=== PATIENT | female | born 1950 | race Caucasian/White ===

== ENCOUNTER 2023-11-12 09:10 | Outpatient (REF) | payer MEDICARE, SELFPAY ==
--- NOTE | ~2023-11-12 | XR_ITS ---
EXAMINATION: XR LUMBOSACRAL SPINE AND RIGHT HIP CLINICAL INFORMATION: Reason for Exam M25.551 - Pain in right hip COMPARISON: None TECHNIQUE: 3 views of the lumbar spine. One view of the pelvis and one view of the right hip. FINDINGS: 5 nonrib-bearing lumbar-type vertebral bodies. Upper abdominal surgical clips. Vertebral body heights are maintained. Levoconvex curvature of the lumbar spine. Mild to moderate multilevel degenerative disc disease with loss of disc space height and facet arthropathy. Calcified phleboliths in the pelvis. Atherosclerotic vascular calcification. Large volume of desiccated stool in the pelvis. Hip and sacroiliac joint spaces are maintained. No hip or pelvic fracture or dislocation. XR/XR hip RT min 2V IMPRESSION: 1. Levoconvex curvature of the lumbar spine. Mild to moderate multilevel degenerative disc disease with loss of disc space height and facet arthropathy. 2. Large volume of desiccated stool in the pelvis. 3. Hip and sacroiliac joint spaces are maintained.
--- NOTE | ~2023-11-12 | XR_ITS ---
EXAMINATION: XR LUMBOSACRAL SPINE AND RIGHT HIP CLINICAL INFORMATION: Reason for Exam M25.551 - Pain in right hip COMPARISON: None TECHNIQUE: 3 views of the lumbar spine. One view of the pelvis and one view of the right hip. FINDINGS: 5 nonrib-bearing lumbar-type vertebral bodies. Upper abdominal surgical clips. Vertebral body heights are maintained. Levoconvex curvature of the lumbar spine. Mild to moderate multilevel degenerative disc disease with loss of disc space height and facet arthropathy. Calcified phleboliths in the pelvis. Atherosclerotic vascular calcification. Large volume of desiccated stool in the pelvis. Hip and sacroiliac joint spaces are maintained. No hip or pelvic fracture or dislocation. XR/XR lumbar spine 2-3V IMPRESSION: 1. Levoconvex curvature of the lumbar spine. Mild to moderate multilevel degenerative disc disease with loss of disc space height and facet arthropathy. 2. Large volume of desiccated stool in the pelvis. 3. Hip and sacroiliac joint spaces are maintained.
== END 2023-11-12 09:11 | disposition home or self-care (01) ==
LOC: HO.HOSX 09:10
PROVIDERS: Visit Provider Orthopaedic Surgery
DX: M25.551 Pain in right hip (principal); M54.50 Low back pain, unspecified
CPT/HCPCS: 72100; 73502; 99202

== ENCOUNTER 2023-11-12 14:20 | Outpatient (AMB) | payer MEDICARE, SELFPAY ==
--- NOTE | 2023-11-12 14:35 | A.OFFVIS_ITS ---
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 She also has intermittent pain along the posterior aspect of her right hip. Her symptoms have gotten worse over the last year in spite of continued non operative treatments. She has tried Tylenol and anti-inflammatory medicines which gave her minimal relief. She has also done physical therapy exercises which aggravated her pain. The patient states that she also has intermittent weakness in her right leg. as a new patient with Right hip pain. Patient reports her pain has been going on for about 3 months and is a 10 on the 1-10 pain scale. Allergies budesonide [From RHINOCORT AQUA] Allergy (Severe, Unverified 04/20/20 15:38) NASAL SPRAY- SWOLLEN FACE- DIFF BREATHING doxycycline [DOXYCYCLINE] Allergy (Severe, Unverified 04/20/20 15:38) SWOLLEN LIPS, FACE TONGUE fluticasone [FLUTICASONE] Allergy (Severe, Unverified 04/20/20 15:38) NASAL SPRAY - SWOLLEN FACE DIFF BREATHING NSAIDS (Non-Steroidal Anti-Inflamma [NSAIDS (NON-STEROIDAL ANTI-INFLAMMA] Allergy (Severe, Unverified 04/20/20 15:38) SWOLLEN TONGUE,THROAT FACE DIFF BREATHING Quinolones [QUINOLONES] Allergy (Severe, Unverified 04/20/20 15:38) SWOLLEN TONGUE FACE DIFF BREATHING Tetracyclines [TETRACYCLINES] Allergy (Severe, Unverified 04/20/20 15:38) SWOLLEN LIPS, FACE TONGUE Sulfa (Sulfonamide Antibiotics) Allergy (Unknown, Unverified 04/20/20 15:38) BAD REACTION sulfamethoxazole [From BACTRIM] Allergy (Unknown, Unverified 04/20/20 15:38) BAD RXN DOES NOT REMEMBER EXACTLY WHAT HAPPENED Thiazides [THIAZIDES] Allergy (Unknown, Unverified 04/20/20 15:38) BAD RXN trimethoprim [From BACTRIM] Allergy (Unknown, Unverified 04/20/20 15:38) BAD RXN DOES NOT REMEMBER EXACTLY WHAT HAPPENED [facility] Surgical History (Updated 11/12/23 @ 14:48 by Elmira Silver CMA) H/O: hysterectomy History of left knee replacement (06/17/11) Hx of foot surgery Hx of appendectomy Physical Exam Const Other: Well-nourished well-developed very friendly female awake alert and oriented x3 in no acute distress Back/Spine/Pelvis Other: Low back examination shows right-sided paraspinal muscle tenderness, pain with range of motion, positive straight leg raise test on the right at 70 degrees, 4/5 strength with testing of her right hip flexors and knee extensors when compared to 5/5 strength on her left side Extrem Other: Bilateral lower extremity examination shows good capillary refill, no skin lesions noted, normal sensation light touch Right hip examination shows minimal discomfort with range of motion, no tenderness over her bursa Results Reviewed Results Reviewed: X-rays of the patient's right hip show mild diffuse joint space narrowing, no acute bony abnormalities X-rays of the patient's lumbar spine show diffuse degenerative disc disease, no acute bony abnormalities Assessment & Plan Assessment & Plan (1) Low back pain: Code(s): M54.50 - Low back pain, unspecified Plan Ms. Marcano presents with progressively worsening low back pain which radiates down her right leg as well as associated right leg weakness possibly due to lumbar stenosis or a disc herniation. Thus, I will send the patient for a CT scan of her lumbar spine for further evaluation. The patient states that she has not able to get an MRI because of hattie placed surgically with an her jaw years ago. I will see the patient back following the CT scan to discuss the findings and treatment options. She will call me prior to that time should her symptoms worsen in any way. Feel free to call me at any time should questions regarding her orthopedic management arise. I spent 22 minutes in reviewing the patient's records and imaging studies, seeing the patient and documenting in the medical record. Orders: Orders XR hip RT min 2V Today M25.551 - Pain in right hip CT lumbar spine wo IV con Today M54.50 - Low back pain, unspecified XR lumbar spine 2-3V Today M54.50 - Low back pain, unspecified Coding Level of Care Code New Pt Level 2 (11653) Diagnoses Low back pain M54.50
== END 2023-11-12 14:49 | disposition home or self-care (01) ==
PROVIDERS: PCP Internal Medicine; Visit Provider Orthopaedic Surgery
DX: M54.50 Low back pain, unspecified (principal)
CPT/HCPCS: 99202

== ENCOUNTER 2023-12-31 14:29 | Outpatient (AMB) | payer MEDICARE, SELFPAY ==
--- NOTE | 2023-12-31 14:30 | A.OFFVIS_ITS ---
Intake Visit Reasons: OV - CT Lumbar Spine review Intake Note: Crystal is a 73 year old female who presents with complaints of progressively worsening low back pain which radiates down her right leg into her right thigh. She also has intermittent pain along the posterior aspect of her right hip. Her symptoms have gotten worse over the last year in spite of continued non operative treatments. She has tried Tylenol and anti-inflammatory medicines which gave her minimal relief. She has also done physical therapy exercises which aggravated her pain. The patient states that she also has intermittent weakness in her right leg. Allergies budesonide [From RHINOCORT AQUA] Allergy (Severe, Unverified 12/31/23 14:33) NASAL SPRAY- SWOLLEN FACE- DIFF BREATHING doxycycline [DOXYCYCLINE] Allergy (Severe, Unverified 12/31/23 14:33) SWOLLEN LIPS, FACE TONGUE fluticasone [FLUTICASONE] Allergy (Severe, Unverified 12/31/23 14:33) NASAL SPRAY - SWOLLEN FACE DIFF BREATHING NSAIDS (Non-Steroidal Anti-Inflamma [NSAIDS (NON-STEROIDAL ANTI-INFLAMMA] Allergy (Severe, Unverified 12/31/23 14:33) SWOLLEN TONGUE,THROAT FACE DIFF BREATHING Quinolones [QUINOLONES] Allergy (Severe, Unverified 12/31/23 14:33) SWOLLEN TONGUE FACE DIFF BREATHING Tetracyclines [TETRACYCLINES] Allergy (Severe, Unverified 12/31/23 14:33) SWOLLEN LIPS, FACE TONGUE Sulfa (Sulfonamide Antibiotics) Allergy (Unknown, Unverified 12/31/23 14:33) BAD REACTION sulfamethoxazole [From BACTRIM] Allergy (Unknown, Unverified 12/31/23 14:33) BAD RXN DOES NOT REMEMBER EXACTLY WHAT HAPPENED Thiazides [THIAZIDES] Allergy (Unknown, Unverified 12/31/23 14:33) BAD RXN trimethoprim [From BACTRIM] Allergy (Unknown, Unverified 12/31/23 14:33) BAD RXN DOES NOT REMEMBER EXACTLY WHAT HAPPENED Medication List - Last Reconciled 12/31/23 by Devon Sheppard MD amoxicillin 2,000 mg (4 x 500 mg) PO ONCE pentazocine-aspirin 12.5-325 mg tabs PO PFSH Surgical History H/O: hysterectomy History of left knee replacement (06/17/11) Hx of foot surgery Hx of appendectomy Physical Exam Const Other: Well-nourished well-developed very friendly female awake alert and oriented x3 in no acute distress Back/Spine/Pelvis Other: Low back examination shows right-sided paraspinal muscle tenderness, pain with range of motion, positive straight leg raise test on the right at 70 degrees Results Reviewed Results Reviewed: MRI report of the patient's lumbar spine shows moderate neural foraminal stenosis at levels L1-L2 and level L2-L3, moderate bilateral neural foraminal stenosis at level L5-S1 Assessment & Plan Assessment & Plan (1) Lumbar stenosis: Code(s): M48.061 - Spinal stenosis, lumbar region without neurogenic claudication Category: Medical Plan Ms. Marcano presents with low back pain which radiates down her right leg due to neural foraminal stenosis. Thus, I will send the patient for an evaluation in our Neurosurgery Department here at [facility]. The patient will contact me prior to that appointment should her symptoms worsen in any way. Feel free to call me at any time should questions regarding her orthopedic management arise. I spent 21 minutes in reviewing the patient's records and imaging studies, seeing the patient and documenting in the medical record. Orders: Referrals Neurosurgery Referral M48.061 - Spinal stenosis, lumbar region without neurogenic claudication Coding Level of Care Code Est Pt Level 3 (67164) Diagnoses Lumbar stenosis M48.061
== END 2023-12-31 14:59 | disposition home or self-care (01) ==
PROVIDERS: PCP Internal Medicine; Visit Provider Orthopaedic Surgery
DX: M48.061 Spinal stenosis, lumbar region without neurogenic claudication (principal)
CPT/HCPCS: 99214

== ENCOUNTER → 2023-12-31 14:29 | Outpatient (BNVA) | payer MEDICARE, SELFPAY | PROVIDERS: PCP Internal Medicine; Visit Provider Orthopaedic Surgery | DX: M48.061 Spinal stenosis, lumbar region without neurogenic claudication (principal) | CPT/HCPCS: 99212 ==

== ENCOUNTER 2024-01-05 13:05 | Outpatient (AMB) | payer MEDICARE, SELFPAY ==
--- NOTE | 2024-01-05 13:07 | A.SPINEOV_ITS ---
Intake Visit Reasons: Spinal stenosis Intake Note: Ms. Marcano is here today c/o back pain. 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 Allergies budesonide [From RHINOCORT AQUA] Allergy (Severe, Unverified 12/31/23 14:33) NASAL SPRAY- SWOLLEN FACE- DIFF BREATHING doxycycline [DOXYCYCLINE] Allergy (Severe, Unverified 12/31/23 14:33) SWOLLEN LIPS, FACE TONGUE fluticasone [FLUTICASONE] Allergy (Severe, Unverified 12/31/23 14:33) NASAL SPRAY - SWOLLEN FACE DIFF BREATHING NSAIDS (Non-Steroidal Anti-Inflamma [NSAIDS (NON-STEROIDAL ANTI-INFLAMMA] Allergy (Severe, Unverified 12/31/23 14:33) SWOLLEN TONGUE,THROAT FACE DIFF BREATHING Quinolones [QUINOLONES] Allergy (Severe, Unverified 12/31/23 14:33) SWOLLEN TONGUE FACE DIFF BREATHING Tetracyclines [TETRACYCLINES] Allergy (Severe, Unverified 12/31/23 14:33) SWOLLEN LIPS, FACE TONGUE Sulfa (Sulfonamide Antibiotics) Allergy (Unknown, Unverified 12/31/23 14:33) BAD REACTION sulfamethoxazole [From BACTRIM] Allergy (Unknown, Unverified 12/31/23 14:33) BAD RXN DOES NOT REMEMBER EXACTLY WHAT HAPPENED Thiazides [THIAZIDES] Allergy (Unknown, Unverified 12/31/23 14:33) BAD RXN trimethoprim [From BACTRIM] Allergy (Unknown, Unverified 12/31/23 14:33) BAD RXN DOES NOT REMEMBER EXACTLY WHAT HAPPENED Assessment & Plan Assessment & Plan (1) Right groin pain: Code(s): R10.31 - Right lower quadrant pain Category: Medical Plan Dear Dr. Sheppard, Thank you for referring Crystal to our office today. She is a pleasant 74-year-old female who comes in today with a chief complaint of right groin pain. She states this has been ongoing since May of 2023. She identifies an inciting incident of a hard sneeze. She states ever since this initial incident when she sneezes or makes bowel movements she has recurrence of pain. Additionally, she states that her symptoms have wax/wane since May then sometimes have resolved completely for a period of weeks on end until they recur spontaneously when she sneezes or has a bowel movement. She reports the pain is well localized into her right inguinal area, and does not radiate down her leg or shoot around from her back. She states that she has not attempted physical therapy, career services officer, or cortisone injections as of yet. She was evaluated for a potential right hip pathology by both her primary care physician and [facility]. It does not appear that she has any significant right-sided hip pathology at this time. The patient has report that she has a past medical history of hattie placed in her face for TMJ back in 1991. Because of this she is unable to ever have an MRI. PMH: Crohn's disease, irritable bowel disease, fibromyalgia, chronic sinus infections, osteoporosis. Social hx: The patient does not smoke, she reports no substance use. Medications: Talwin, multivitamin, probiotic, vitamin-C. Allergies: Advair, alieuate, Acular, Naprosyn, Levaquin, Avelox, Zymar, Rhinocort, fluticasone, Bactrim, doxycycline, Prilosec, Nexium, Zantac, prednisone, methylprednisone. Physical exam: [] Imaging review: CT scan of the lumbar spine completed at [facility] shows diffuse spondylosis of the lumbar spine with varying stages of degenerative disc disease throughout the spine. On localize review she has what appears to be a degenera tive scoliosis which forms in her thoracic spine. Evaluation of her nerve root to be better assessed by an MRI or CT myelogram. Impression: Crystal is a pleasant 74-year-old female who comes in today with a chief complaint of right-sided groin pain. She states that this started abruptly in May of 2023 after she sneezed very hard. She reports this pain has waxed/waned since initial onset, and is exacerbated by subsequent sneezing and bowel movements. Importantly, she has had weeks at a time where she has 0 symptoms until her symptoms abruptly resume after a harsh sneeze or bowel movement. It is possible that given the degeneration seen on lumbar CT scan that she could have an acute impingement of a right-sided nerve root, most likely L5. If this is not the case, her history and physical are also consistent with a possible hernia, that is incarcerating itself then receding back into to peritoneal space. I would like her to be sent for a CT myelogram at [facility] to rule out a nerve impingement, and if this is negative I will be referring her to our colleagues in General surgery. Thank you for allowing us to care for your patient. The total time spent with this visit with this patient was 45 minutes reviewing history, physical exam, CT imaging review, and implementation of treatment plan or further diagnostic testing Patel Flores MD,PhD [facility] Coding Level of Care Code New Pt Level 4 (82047) Diagnoses Right groin pain R10.31
== END 2024-01-05 13:49 | disposition home or self-care (01) ==
PROVIDERS: PCP Internal Medicine; Referring Provider Orthopaedic Surgery; Visit Provider Physician Assistant
DX: R10.31 Right lower quadrant pain (principal)
CPT/HCPCS: 99204

== ENCOUNTER → 2024-01-05 13:05 | Outpatient (BNVA) | payer MEDICARE, SELFPAY | PROVIDERS: PCP Internal Medicine; Visit Provider Physician Assistant | DX: R10.31 Right lower quadrant pain (principal) | CPT/HCPCS: 99202 ==

== ENCOUNTER 2025-07-07 13:47 | Outpatient (AMB) | payer MEDICARE, SELFPAY ==
--- NOTE | 2025-07-07 13:46 | A.PHYSOV ---
Vital Signs 07/07/25 13:50 Height 5 ft 4.5 in Weight 111 lb BMI 18.8 Intake Visit Reasons: 6M Intake Note: Patient is a 75 year old female in office today for her 3 month medication management visit. 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 Allergies budesonide (From RHINOCORT AQUA) Allergy (Severe, Verified 07/07/25 13:45) NASAL SPRAY- SWOLLEN FACE- DIFF BREATHING doxycycline (DOXYCYCLINE) Allergy (Severe, Verified 07/07/25 13:45) SWOLLEN LIPS, FACE TONGUE fluticasone (FLUTICASONE) Allergy (Severe, Verified 07/07/25 13:45) NASAL SPRAY - SWOLLEN FACE DIFF BREATHING NSAIDS (Non-Steroidal Anti-Inflamma (NSAIDS (NON-STEROIDAL ANTI-INFLAMMA) Allergy (Severe, Verified 07/07/25 13:45) SWOLLEN TONGUE,THROAT FACE DIFF BREATHING Quinolones (QUINOLONES) Allergy (Severe, Verified 07/07/25 13:45) SWOLLEN TONGUE FACE DIFF BREATHING Tetracyclines (TETRACYCLINES) Allergy (Severe, Verified 07/07/25 13:45) SWOLLEN LIPS, FACE TONGUE Sulfa (Sulfonamide Antibiotics) Allergy (Unknown, Verified 07/07/25 13:45) BAD REACTION sulfamethoxazole (From BACTRIM) Allergy (Unknown, Verified 07/07/25 13:45) BAD RXN DOES NOT REMEMBER EXACTLY WHAT HAPPENED Thiazides (THIAZIDES) Allergy (Unknown, Verified 07/07/25 13:45) BAD RXN trimethoprim (From BACTRIM) Allergy (Unknown, Verified 07/07/25 13:45) BAD RXN DOES NOT REMEMBER EXACTLY WHAT HAPPENED HPI Comments Details: History of Present Illness The patient is a 75 year old female presenting for a follow-up visit for chronic pain management. She has a history of chronic facial pain for which she has been taking a pentazocine and naloxone combination medication up to four times a day as needed for years. She has been reducing her medication intake lately and reports no side effects from its use. The patient has been compliant with monitoring, and her prescription monitoring reports have been appropriate. The patient also has a new diagnosis of chemical gastritis, which reportedly causes terrible nausea upon waking in the morning. Over the past year, the nausea has been lasting longer and is now associated with morning dry heaves and some non-terrible pain. She has been unable to tolerate recommended medications for gastritis due to severe constipation. The patient mentioned an endoscopy by Dr. Thompson revealed the gastritis and an esophageal issue that was not a problem based on biopsy results, and she follows with a PA for gastroenterology. She also has an issue of chronic lower back pain associated with spinal stenosis and lumbar radiculitis. The patient typically follows up every 6 months for medication management. Pain Description - Location: Chronic pain involving her face. - Onset and Duration: Has been on medication for this pain for years. Results - Endoscopy/Biopsy: Findings showed chemical gastritis and a non-problematic esophageal issue. - Prescription Monitoring: Report has always been appropriate. [facility] Medical History (Updated 07/07/25 @ 14:02 by Joaquin Fried DO) Chronic pain syndrome Jaw pain Surgical History History of cholecystectomy (Unknown) History of cataract surgery (Unknown) H/O: hysterectomy History of left knee replacement (06/17/11) Hx of foot surgery Hx of appendectomy Social History Household Members: Spouse Alcohol intake: current Alcohol intake frequency: does not drink Patient Tobacco Use Status: Current everyday Tobacco user Current occupational status: retired Review of Systems Narrative Review of Systems - Constitutional: Denies fever or chills. - Gastrointestinal: Reports nausea upon waking, which has worsened over the past year, and now has associated dry heaves and mild pain. Denies heartburn. Denies any change in bowel or bladder habits, and denies constipation. Physical Exam Exam Exam: Physical Exam Vital Signs: BMI result Body Mass Index 18.8 Assessment & Plan Assessment & Plan (1) Lumbar stenosis: Code(s): M48.061 - Spinal stenosis, lumbar region without neurogenic claudication Category: Medical (2) Jaw pain: Code(s): R68.84 - Jaw pain Category: Medical (3) Chronic pain syndrome: Code(s): G89.4 - Chronic pain syndrome Category: Medical Plan Pain Management - Analgesia: The patient is prescribed a pentazocine and naloxone combination, taken as needed up to 4 times a day, and she has been reducing her intake recently. - Adverse Effects: She denies any side effects from her pain medication. - Aberrant Drug Related Behaviors: The patient is compliant with her medication regimen and monitoring, with appropriate prescription monitoring reports. Plan Patient was informed and verbally consented to the use of an ambient scribe for clinic note documentation during this visit. 1. Chronic Facial Pain The patient will continue her current regimen of pentazocine and naloxone combination for chronic facial and lower back pain. She has been self-tapering her medication use. Her prescription for pain medication will be renewed. Follow-up is scheduled for November to return to her preferred November/May biannual schedule. 2. Chemical Gastritis The patient reports worsening nausea and new dry heaves associated with her gastritis. She is followed by a gastroenterology PA for this condition. No changes were made to her gastroenterological care during this visit. Discussion Notes We discussed the patient's request to renew her pain medication, which I will send to her pharmacy. We also confirmed her next follow-up appointment will be in November to re-establish her twice-yearly schedule. Patient Instructions - Continue to take your pentazocine with naloxone as needed for your facial pain, up to 4 times per day. - A renewal for your pain medication has been sent to your pharmacy. - Please schedule your next appointment for November. - Continue to follow up with your gastroenterology provider for your stomach issues. Medications: New pentazocine-naloxone 50-0.5 mg Partial fill upon request 1 tab PO QID PRN 112 tabs 0RF pain 28 days G89.4 - Chronic pain syndrome, M48.061 - Spinal stenosis, lumbar region without neurogenic claudication, R68.84 - Jaw pain Coding Level of Care Code Est Pt Level 3 (72142) Complex visit Add On G2211 Diagnoses Lumbar stenosis M48.061 Jaw pain R68.84 Chronic pain syndrome G89.4
[2025-07-07 13:50] VITALS: BMI 18.8
== END 2025-07-07 14:03 | disposition home or self-care (01) ==
LOC: HO.HPHYS 13:47
PROVIDERS: PCP Internal Medicine; Visit Provider Physical Medicine & Rehabilitation
DX: M48.061 Spinal stenosis, lumbar region without neurogenic claudication (principal); R68.84 Jaw pain; G89.4 Chronic pain syndrome
CPT/HCPCS: 99213; G2211

== ENCOUNTER → 2025-07-07 13:47 | Outpatient (BNVA) | payer MEDICARE, SELFPAY | PROVIDERS: PCP Internal Medicine; Visit Provider Physical Medicine & Rehabilitation | DX: G89.4 Chronic pain syndrome (principal); R68.84 Jaw pain; M48.061 Spinal stenosis, lumbar region without neurogenic claudication | CPT/HCPCS: 99212 ==